=== PATIENT | male | born 1985 | race American Indian/Alaskan Native ===

== ENCOUNTER 2018-09-04 15:16 | Emergency (ER) | payer OTHER ==
--- NOTE | 2018-09-04 15:29 | Emergency Department Report ---
Blank Doc - Documentation Documentation: 32 y/o AAM c/o left chest pressure and pain off and on for last 3-4 months not responsive to PPI or H2 and causes vomiting and sob off and on. unable to reproduce cp Plan labs, ekg, xray
[2018-09-04 15:50] LABS: Basophils # (Auto) 0.1 K/mm3 (0.0-0.1); Eosinophils # (Auto) 0.2 K/mm3 (0.0-0.4); Eosinophils % (Auto) 3.2 % (0.0-4.3); Hematocrit 42.7 % (35.5-45.6); Hemoglobin 14.8 gm/dl (11.8-15.2); Lymphocytes # (Auto) 3.1 K/mm3 (1.2-5.4); Lymphocytes % (Auto) 42.5 % (13.4-35.0); Mean Corpuscular HGB Conc 35 % (32-34); Mean Corpuscular Volume 94 fl (84-94); Monocytes # (Auto) 0.6 K/mm3 (0.0-0.8); Monocytes % (Auto) 8.6 % (0.0-7.3); Platelet Count 379 K/mm3 (140-440); Red Blood Count 4.52 M/mm3 (3.65-5.03); Red Cell Distribution Width 13.5 % (13.2-15.2)
[2018-09-04 16:11] LABS: Alanine Aminotransferase 34 units/L (7-56); Albumin 4.3 g/dL (3.9-5); BUN/Creatinine Ratio 9; Blood Urea Nitrogen 10 mg/dL (9-20); Calcium 9.1 mg/dL (8.4-10.2); Hemolysis Index 12
--- NOTE | 2018-09-04 16:48 | XRay Report ---
PROCEDURE: XR CHEST ROUTINE 2V TECHNIQUE: PA and lateral chest radiographs were obtained. HISTORY: Chest Pain COMPARISONS: None currently available. FINDINGS: Cardiac silhouette is within normal limits. There is no effusion. There is no pneumothorax. There is no consolidation. There are no suspicious osseous lesions. Surgical anchors in the right glenoid. IMPRESSION: * No acute cardiopulmonary findings. This document is electronically signed by Dennis Zamora MD., September 04 2018 04:47:11 PM ET
--- NOTE | 2018-09-04 19:54 | Emergency Department Report ---
ED Chest Pain HPI - General Chief Complaint: Chest Pain Stated Complaint: DIZZINESS/CHEST PAIN Time Seen by Provider: 09/04/18 15:22 Source: patient Mode of arrival: Ambulatory Limitations: No Limitations - History of Present Illness Initial Comments: Patient is a 32-year-old male who presents for left lateral chest pain for described this pain pressure sharp last bowel movement deep breathing patient has had a history of the same the past 6 months patient history of asthma also [id number] smoker occasional THC occasional cocaine use 1 week ago tp denies sob no dizziness no lightheadedness no n/v no back pain no diaphoresis Complaint: chest pain Onset/Timin -: month(s) Onset: during rest, during exertion, after eating Pain Location: left chest Severity: moderate Severity scale (0 -10): 5 Quality: sharp, pressure Consistency: intermittent Improves With: rest Worsens With: inspiration, eating, movement re: nausea. denies: vomting, diaphoresis, dyspnea, sense of impending doom Other Symptoms: cough, burping. denies: fever, syncope, rash, acid taste in mouth, leg swelling, palpitations Treatments Prior to Arrival: none Aspirin use within the Past 7 Days: (0) No - Related Data Previous Rx's Medication Instructions Recorded Last Taken Type Ibuprofen [Motrin] 800 mg PO Q8H PRN #30 tablet 06/18/13 Unknown Rx traMADol [Ultram 50 MG tab] 50 mg PO Q6HR PRN #20 tablet 06/18/13 Unknown Rx Famotidine [Pepcid] 20 mg PO BID #60 tablet 09/04/18 Unknown Rx Ibuprofen [Motrin 800 MG tab] 800 mg PO Q8HR PRN #30 tablet 09/04/18 Unknown Rx Allergies Allergy/AdvReac Type Severity Reaction Status Date / Time No Known Allergies Allergy Verified 09/04/18 15:17 Heart Score - HEART Score History: Slightly suspicious EKG: Normal Age: < 45 Risk factors: No known risk factors Troponin: < normal limit HEART Score: 0 ED Review of Systems ROS: Stated complaint: DIZZINESS/CHEST PAIN Other details as noted in HPI Constitutional: denies: chills, fever Eyes: denies: eye pain, eye discharge, vision change ENT: denies: ear pain, throat pain Respiratory: denies: cough, shortness of breath, wheezing Cardiovascular: chest pain. denies: palpitations, dyspnea on exertion, orthopnea, edema, syncope, paroxysmal nocturnal dyspnea Endocrine: no symptoms reported Gastrointestinal: nausea. denies: abdominal pain, vomiting, diarrhea, constipation, hematemesis, melena, hematochezia Genitourinary: denies: urgency, dysuria, frequency Musculoskeletal: denies: back pain, joint swelling, arthralgia Skin: denies: rash, lesions Neurological: denies: headache, weakness, paresthesias Psychiatric: denies: anxiety, depression Hematological/Lymphatic: denies: easy bleeding, easy bruising ED Past Medical Hx - Past Medical History Previous Medical History?: No - Surgical History Additional Surgical History: elbow - Social History Smoking Status: Former Smoker Substance Use Type: Alcohol, Cocaine, Marijuana, Other - Medications Home Medications: Home Medications Medication Instructions Recorded Confirmed Last Taken Type Ibuprofen [Motrin] 800 mg PO Q8H PRN #30 tablet 06/18/13 Unknown Rx traMADol [Ultram 50 MG tab] 50 mg PO Q6HR PRN #20 tablet 06/18/13 Unknown Rx Famotidine [Pepcid] 20 mg PO BID #60 tablet 09/04/18 Unknown Rx Ibuprofen [Motrin 800 MG tab] 800 mg PO Q8HR PRN #30 tablet 09/04/18 Unknown Rx ED Physical Exam - General Limitations: No Limitations General appearance: alert, in no apparent distress - Head Head exam: Present: atraumatic, normocephalic - Eye Eye exam: Present: normal appearance, PERRL, EOMI. Absent: conjunctival injection, nystagmus Pupils: Present: normal accommodation - ENT ENT exam: Present: normal orophraynx, mucous membranes moist, TM's normal bilaterally, normal external ear exam - Neck Neck exam: Present: normal inspection, full ROM. Absent: tenderness, meningismus, lymphadenopathy, thyromegaly - Respiratory Respiratory exam: Present: normal lung sounds bilaterally, chest wall tenderness (left lateral no swelling no crepitus no stepoff ). Absent: respiratory distress, wheezes, rales, rhonchi, stridor - Cardiovascular Cardiovascular Exam: Present: regular rate, normal rhythm, normal heart sounds. Absent: systolic murmur, diastolic murmur, rubs, gallop - Expanded Cardiovascular Exam Expanded Peripheral pulses: 2+: Carotid (R), Carotid (L), Radial (R), Radial (L), Dorsalis Pedis (R), Dorsalis Pedis (L) - GI/Abdominal GI/Abdominal exam: Present: soft, tenderness (epigastric), normal bowel sounds. Absent: distended, guarding, rebound, rigid, bruit, hernia - Rectal Rectal exam: Present: deferred - Extremities Exam Extremities exam: Present: normal inspection, full ROM, normal capillary refill. Absent: tenderness, pedal edema, joint swelling, calf tenderness - Back Exam Back exam: Present: normal inspection, full ROM. Absent: tenderness, CVA tenderness (R), CVA tenderness (L), muscle spasm, paraspinal tenderness, vertebral tenderness, rash noted - Neurological Exam Neurological exam: Present: alert, oriented X3, CN II-XII intact, normal gait, reflexes normal. Absent: motor sensory deficit - Psychiatric Psychiatric exam: Present: normal affect, normal mood - Skin Skin exam: Present: warm, dry, intact, normal color. Absent: rash ED Course Vital Signs 09/04/18 15:57 Temperature 98.8 F Pulse Rate 102 H Respiratory 20 Rate Blood Pressure 131/81 O2 Sat by Pulse 100 Oximetry RAHUL score - Rahul Score Age > 65: (0) No Aspirin use within the Past 7 Days: (0) No 3 or more CAD Risk Factors: (0) No 2 or more Angina events in past 24 hrs: (0) No Known CAD with more than 50% Stenosis: (0) No Elevated Cardiac Markers: (0) No ST Deviation Greater than 0.5mm: (0) No RAHUL Score: 0 ED Medical Decision Making - Lab Data Result diagrams: 09/04/18 15:31 09/04/18 15:31 Labs 09/04/18 09/04/18 09/04/18 15:31 15:31 15:31 WBC 7.2 RBC 4.52 Hgb 14.8 Hct 42.7 MCV 94 MCH 33 H MCHC 35 H RDW 13.5 Plt Count 379 Lymph % (Auto) 42.5 H Rock % (Auto) 8.6 H Eos % (Auto) 3.2 Baso % (Auto) Stable Hand Lymph # 3.1 Rock # 0.6 Eos # 0.2 Baso # 0.1 Seg Neutrophils % 44.8 Seg Neutrophils # 3.2 Sodium 142 Potassium 4.2 Chloride 104.9 Carbon Dioxide 22 Anion Gap 19 BUN 10 Creatinine 1.1 Estimated GFR > 60 BUN/Creatinine Ratio 9 Glucose 96 Calcium 9.1 Total Bilirubin 0.60 AST 21 ALT 34 Alkaline Phosphatase 74 Troponin T < 0.010 Total Protein 7.5 Albumin 4.3 Albumin/Globulin Ratio 1.3 - EKG Data EKG shows normal: sinus rhythm, axis, intervals, QRS complexes, ST-T waves Rate: normal - EKG Data Interpretation: normal EKG (ekg NSR NO ST Elevated NC interp by ED attending ) - Radiology Data Radiology results: report reviewed, image reviewed Patient: DUSTIN SANCHEZ MR#: [id number] 7 : 1985 Acct:[id number] Age/Sex: 32 / M ADM Date: 09/04/18 Loc: ED Attending Dr: Ordering Physician: JACOB GUTIERREZ Date of Service: 09/04/18 Procedure(s): XR chest routine 2V Accession Number(s): [id number] cc: JACOB GUTIERREZ Fluoro Time In Minutes: PROCEDURE: XR CHEST ROUTINE 2V TECHNIQUE: PA and lateral chest radiographs were obtained. HISTORY: Chest Pain COMPARISONS: None currently available. FINDINGS: Cardiac silhouette is within normal limits. There is no effusion. There is no pneumothorax. There is no consolidation. There are no suspicious osseous lesions. Surgical anchors in the right glenoid. IMPRESSION: * No acute cardiopulmonary findings. This document is electronically signed by Dennis Pena MD., September 04 2018 04:47:11 PM ET Transcribed By: TYM Dictated By: DENNIS PENA MD Electronically Authenticated By: DENNIS PENA MD Signed Date/Time: 09/04/18 1648 DD/ 1547 - Medical Decision Making ekg: NSR no st elevated mi, cxr: normal no opacities no infiltrates, heart score is 0, RAHUL score is : 0, pt symptoms are resolved to 0/10 after multiple belching episodes per patient , pt denies substance use today plan: dc to home with rx for pepcid, and ibuprofen, follow up with pcp in 2-3 days, given referral to GI and Card as requested by patient as this has been and recurring problem for past 6 months, there is low suspicion of for cardiac cause likely GERD , and substance overuse as he usually indulges THC and or cocaine every other day. Critical care attestation.: If time is entered above; I have spent that time in minutes in the direct care of this critically ill patient, excluding procedure time. ED Disposition Clinical Impression: Chest pain Qualifiers: Chest pain type: unspecified Qualified Code(s): R07.9 - Chest pain, unspecified GERD (gastroesophageal reflux disease) Qualifiers: Esophagitis presence: without esophagitis Qualified Code(s): K21.9 - Gastro- esophageal reflux disease without esophagitis Disposition: TO HOME OR SELFCARE Is pt being admited?: No Does the pt Need Aspirin: No Condition: Stable Instructions: Chest Pain (ED), Gastroesophageal Reflux Disease (ED), Diet for Ulcers and Gastritis (ED) Prescriptions: Ibuprofen [Motrin 800 MG tab] 800 mg PO Q8HR PRN #30 tablet PRN Reason: pain Famotidine [Pepcid] 20 mg PO BID #60 tablet Referrals: [facility] [Provider Group] - 3-5 Days ILYA ABDI MD [Staff Physician] - 3-5 Days LOPEZ GABRIEL MD [Staff Physician] - 3-5 Days Forms: Work/School Release Form(ED) Time of Disposition: 20:07
[2018-09-04 20:15] VITALS: BP 134/76
== END 2018-09-04 20:13 | disposition home or self-care (01) ==
LOC: ED 15:16
DX: R07.89 Other chest pain (principal); K21.9 Gastro-esophageal reflux disease without esophagitis; F12.10 Cannabis abuse, uncomplicated; F14.10 Cocaine abuse, uncomplicated; Z87.891 Personal history of nicotine dependence
CPT/HCPCS: 36415; 71046; 80053; 84484; 85025; 93005; 93010; 99283